=== PATIENT | male | born 1975 | race Caucasian/White ===

== ENCOUNTER → 2016-12-23 | Outpatient (CLI) | payer BC ==
--- NOTE | 2016-12-23 15:10 | DIAGNOSTIC IMAGING REPORT ---
TESTICULAR ULTRASOUND HISTORY: Pain N50.812 Pain in left testicle COMPARISON: None. FINDINGS: Right testis: Maximum dimension 5.1 cm. Normal vascular flow. Small hydrocele as well as patent inferior conceals Left testis: Maximum dimension 4.9 cm. Normal vascular flow. Partial thrombosis of a left-sided varicocele. Suggestion of possible exophytic nodule from the medial aspect of the left testis measuring 8 mm. This may also represent a thrombosed varicocele. IMPRESSION: 1. Normal testes. 2. Exophytic nodule projecting from the medial aspect of the left testis measuring 8 mm versus thrombosed varicocele. 3. Repeat study in several weeks is suggested as follow-up Electronically signed by: Rigo Flores M.D. 12/23/2016 3:08 PM Dictated Date/Time: 12/23/2016 3:05 PM
== END | disposition home or self-care (01) ==
LOC: C.ULTR 12:49 → C.ULTRBC 14:30
PROVIDERS: ATTEND Internal Medicine
DX: N50.812 Left testicular pain (principal); N50.9 Disorder of male genital organs, unspecified

== ENCOUNTER → 2017-01-12 | Outpatient (CLI) | payer BC ==
--- NOTE | 2017-01-12 10:04 | DIAGNOSTIC IMAGING REPORT ---
TESTICULAR ULTRASOUND HISTORY: MASS OF LEFT TESTICLE COMPARISON: Testicular ultrasound 12/23/2016. FINDINGS: Right testis: 5.2 x 2.6 x 3.4 cm. There are no intratesticular masses. Normal color flow. No hydrocele. The epididymis is unremarkable. Left testis: 4.6 x 23.8 x 2.5 cm. There are no intratesticular masses. Normal color flow. No hydrocele. A 3 mm cyst within the body of the epididymis. IMPRESSION: Normal bilateral testes. The left exophytic nodule is no longer identified. Electronically signed by: Thomas Franz M.D. 01/12/2017 10:02 AM Dictated Date/Time: 01/12/2017 9:34 AM
== END | disposition home or self-care (01) ==
LOC: C.ULTRBC 07:42
PROVIDERS: ATTEND Urology
DX: N50.9 Disorder of male genital organs, unspecified (principal)

== ENCOUNTER 2017-07-12 09:46 | Emergency (ER) | payer BC, OTHER ==
[~2017-07-12] VITALS: Ht 177.8 cm; Wt 150.0 kg
[2017-07-12 09:51] VITALS: TEMP 36.5; Ht 177.8 cm; Wt 150.0 kg
[2017-07-12] MEDS ORDERED: MONT1TAB3 PO (10:31)
[2017-07-12] MEDS ORDERED: PRLSR20 PO (10:31)
[2017-07-12] MEDS ORDERED: LEVO150T PO (10:31)
--- NOTE | 2017-07-12 11:09 | DIAGNOSTIC IMAGING REPORT ---
RIGHT LOWER EXTREMITY VENOUS DOPPLER CLINICAL HISTORY: Right medial knee edema. COMPARISON STUDY: No previous studies for comparison. TECHNIQUE: Sonography of the deep venous system of the right lower extremity was performed. Compression and augmentation were evaluated. FINDINGS: The right common femoral, superficial femoral and popliteal veins were compressible. Augmentation was normal. Flow was shown within the deep calf vessels. Note is made of thrombus within a superficial vein of the medial right knee that extends for approximately 2 cm. IMPRESSION: 1. No evidence of deep venous thrombus within the right lower extremity. 2. Small amount of thrombus within a superficial vein of the medial right knee consistent with superficial thrombophlebitis. Electronically signed by: Ed English M.D. 07/12/2017 11:08 AM Dictated Date/Time: 07/12/2017 11:06 AM
--- NOTE | 2017-07-12 11:28 | EMERGENCY ROOM VISIT NOTE ---
History First contact with patient: 09:55 Chief Complaint: LEG PAIN,LEG INJURY Stated Complaint: BLOOD CLOT? History of Present Illness The patient is a 41 year old male who presents to the Emergency Room via private vehicle referred by family doctor with complaints of "blood clot?". The patient states that for 5 days now he has had redness, and swelling and pain at the medial aspect of the right knee. He denies trauma or injury. He states that he was standing it is worse. He states that he called the family doctor who referred him here for potential blood clot. He has no history of clots. Review of Systems A complete 10-point Review of Systems was discussed with the patient, with pertinent positives and negatives listed in the History of Present Illness. All remaining Review of Systems questions can be considered negative unless otherwise specified. Past Medical/Surgical History Vasectomy Family History DM, Heart disease, HTN Social History Smoking Status: Current Every Day Smoker Current/Historical Medications Scheduled Levothyroxine Sodium (Synthroid), 150 MCG PO DAILY Montelukast Sodium (Singulair), 10 MG PO DAILY Omeprazole (Prilosec), 20 MG PO DAILY Physical Exam Vital Signs Date Time Temp Pulse Resp B/P (MAP) Pulse Ox O2 Delivery O2 Flow Rate FiO2 07/12/17 11:37 69 18 127/94 97 07/12/17 09:51 36.5 70 20 126/77 99 Room Air Physical Exam VITAL SIGNS - Vital signs and nursing notes were reviewed. Stable. GENERAL -41-year-old male appearing his stated age who is in no acute distress. Communicates well with provider and answers questions appropriately. SKIN - overlying the medial aspect of the patient's right knee there is erythema , and some increased warmth. The skin is intact. No evidence of trauma. There are varicose veins noted distally. EXTREMITIES - No clubbing or peripheral cyanosis. No pretibial edema present. Minimal tenderness overlying the patient's right medial knee. Medical Decision & Procedures ER Provider Diagnostic Interpretation: RIGHT LOWER EXTREMITY VENOUS DOPPLER CLINICAL HISTORY: Right medial knee edema. COMPARISON STUDY: No previous studies for comparison. TECHNIQUE: Sonography of the deep venous system of the right lower extremity was performed. Compression and augmentation were evaluated. FINDINGS: The right common femoral, superficial femoral and popliteal veins were compressible. Augmentation was normal. Flow was shown within the deep calf vessels. Note is made of thrombus within a superficial vein of the medial right knee that extends for approximately 2 cm. IMPRESSION: 1. No evidence of deep venous thrombus within the right lower extremity. 2. Small amount of thrombus within a superficial vein of the medial right knee consistent with superficial thrombophlebitis. Electronically signed by: Ed English M.D. 07/12/2017 11:08 AM Dictated Date/Time: 07/12/2017 11:06 AM Medical Decision Patient was seen and evaluated as above. He presents to us today with right leg localized swelling at the right medial knee. There is concern overlying DVT therefore ultrasound was obtained. This is negative for DVT however superficial thrombus phlebitis was noted. This is 2 cm in length. The medicine [place] E treatment task force guidelines were reviewed, and the patient does have a risk factor being male, however there is no known from affiliate, history of DVT, chronic venous insufficiency, recent surgery, trauma, injury, hospitalization, malignancy, hormone use. He also has varicose veins. This then led to a discussion of benefits versus risk of initiating anticoagulants. Through discussing this with the patient was decided to initiate aspirin, and have a potential repeat duplex scan at the 7 -10 day ezio. He verbalizes understanding. He notes an appointment with his family doctor is coming up in the near future. He is to follow with them. He has no chest pain or shortness of breath. He appears stable for outpatient management, and was educated upon conservative measures. He was educated upon management, educated upon worrisome symptoms which to return, had questions prior to discharge, and was discharged home in good condition. In the evaluation and treatment of this patient, the following differential diagnoses were considered: DVT, Patellar Fracture, Tibial Plateau Fracture, Distal Femur Fracture, ACL Injury, PCL Injury, Collateral Ligament Injury, Pes Anserine Bursitis, Maisonneuve Fracture. Impression Primary Impression: Leg pain, right Additional Impression: Acute superficial venous thrombosis of right lower extremity Departure Information Dispostion Home / Self-Care Condition GOOD Referrals Ravin Mariscal M.D. (PCP) Patient Instructions [facility] Additional Instructions You were seen in the emergency department for leg pain. Ultrasound shows that you have a superficial venous thrombosis which is a small clot in the veins close to the skin at the inside of your right knee. I do recommend beginning 81 mg of aspirin daily. I recommend warm compresses to the region. I do recommend follow-up with the family doctor in 7-10 days for repeat scan. Please return with any new/concerning symptoms. Thank you for your time Problem Qualifiers
[2017-07-12 11:37] VITALS: BP 127/94; PULSE 69; O2SAT 97
== END 2017-07-12 11:35 | disposition home or self-care (01) ==
LOC: C.EDB 09:49
DX: M79.604 Pain in right leg (principal); I82.811 Embolism and thrombosis of superficial veins of right lower extremity; Z79.899 Other long term (current) drug therapy; Z82.49 Family history of ischemic heart disease and other diseases of the circulatory system; Z83.3 Family history of diabetes mellitus; F17.200 Nicotine dependence, unspecified, uncomplicated

== ENCOUNTER → 2017-07-26 | Outpatient (CLI) | payer OTHER ==
[~2017-07-26] MED LIST: LEVO150T PO; MONT1TAB3 PO; PRLSR20 PO
[2017-07-26 17:46] LABS: BASO % 0.2 %; BASO ABS # 0.02 K/uL (0-0.2); EOS % 4.7 %; EOS ABS # 0.39 K/uL (0-0.5); HEMATOCRIT 48.2 % (42-52); HEMOGLOBIN 16.6 g/dL (14.0-18.0); IG# 0.06 K/uL (0.00-0.02); LYMPH % 23.4 %; LYMPH ABS # 1.93 K/uL (1.2-3.4); MEAN CELL VOLUME 89.4 fL (80-100); MEAN CORPUSCULAR HEMOGLOBIN 30.8 pg (25-34); MEAN CORPUSCULAR HGB CONC 34.4 g/dl (32-36); MEAN PLATELET VOLUME 10.7 fL (7.4-10.4); MONO % 9.5 %; MONO ABS # 0.78 K/uL (0.11-0.59); NEUT % 61.5 %; NEUT ABS # 5.06 K/uL (1.4-6.5); PLATELET COUNT 157 K/uL (130-400); RED CELL DISTRIBUTION WIDTH CV 13.7 % (11.5-14.5); RED CELL DISTRIBUTION WIDTH SD 44.6 fL (36.4-46.3); WHITE BLOOD COUNT 8.24 K/uL (4.8-10.8)
[2017-07-26 18:14] LABS: ALBUMIN 3.6 gm/dl (3.4-5.0); ALT/SGPT 76 U/L (12-78); AST/SGOT 32 U/L (15-37); BLOOD UREA NITROGEN 14 mg/dl (7-18); CARBON DIOXIDE 26 mmol/L (21-32); CHOLESTEROL 203 mg/dl (0-200); CREATININE 0.82 mg/dl (0.60-1.40); GLUCOSE 98 mg/dl (70-99); POTASSIUM 4.3 mmol/L (3.5-5.1); SODIUM 139 mmol/L (136-145)
[2017-07-26 18:19] LABS: ALKALINE PHOSPHATASE 80 U/L (45-117); LDL CHOLESTEROL CALCULATED 146 mg/dl
== END | disposition home or self-care (01) ==
LOC: C.LABBFT 11:21
PROVIDERS: ATTEND Physician Assistant Medical
DX: E03.9 Hypothyroidism, unspecified (principal)

== ENCOUNTER → 2017-07-26 | Outpatient (CLI) | payer OTHER ==
--- NOTE | 2017-07-26 13:52 | DIAGNOSTIC IMAGING REPORT ---
RIGHT LOWER EXTREMITY VENOUS DOPPLER HISTORY: RIGHT LEG PAIN AND SWELLING COMPARISON STUDY: Right leg venous Doppler 07/12/2017. FINDINGS: There is normal compressibility, flow, and augmentation within the right lower extremity deep venous system. There is superficial vein thrombosis identified within the right mid medial thigh and medial knee. This has slightly progressed. IMPRESSION: 1. No DVT within the right lower extremity 2. Slight progression of the superficial vein thrombosis within the right mid medial thigh and medial knee. Electronically signed by: Thomas Franz M.D. 07/26/2017 1:51 PM Dictated Date/Time: 07/26/2017 1:49 PM
== END | disposition home or self-care (01) ==
LOC: C.ULTRBC 12:57
PROVIDERS: ATTEND Physician Assistant Medical
DX: I82.811 Embolism and thrombosis of superficial veins of right lower extremity (principal)

== ENCOUNTER → 2017-07-29 | Outpatient (CLI) | payer OTHER ==
[2017-07-29 17:34] LABS: BLOOD UREA NITROGEN 12 mg/dl (7-18); CALCIUM 9.2 mg/dl (8.5-10.1); CARBON DIOXIDE 25 mmol/L (21-32); CREATININE 0.88 mg/dl (0.60-1.40); GLUCOSE 77 mg/dl (70-99); POTASSIUM 4.2 mmol/L (3.5-5.1); SODIUM 139 mmol/L (136-145)
== END | disposition home or self-care (01) ==
LOC: C.LABBFT 15:37
PROVIDERS: ATTEND Physician Assistant Medical
DX: E03.9 Hypothyroidism, unspecified (principal)

== ENCOUNTER → 2017-09-05 | Outpatient (CLI) | payer OTHER ==
--- NOTE | 2017-09-05 10:58 | DIAGNOSTIC IMAGING REPORT ---
R VENOUS DOPP LOWER EXT UNILAT CLINICAL HISTORY: I80.9 Superficial thrombophlebitisTO CONFIRM RESOLUTION. E X0D E deep venous fibrosis TECHNIQUE: Venous Doppler COMPARISON STUDY: 07/26/2017 FINDINGS: The study remains negative for deep venous tendinosis. There is a small peripheral branch of the mid saphenous vein within the distal thigh demonstrating superficial thrombophlebitis. This is improved from the prior study. IMPRESSION: Minimal residual superficial thrombophlebitis of a peripheral branch of the mid saphenous vein. This is improved from the prior study with only minimal residual. The study remains negative for deep venous thrombosis. The above report was generated using voice recognition software. It may contain grammatical, syntax or spelling errors. Electronically signed by: Rigo Flores M.D. 09/05/2017 10:57 AM Dictated Date/Time: 09/05/2017 10:55 AM
== END | disposition home or self-care (01) ==
LOC: C.ULTR 10:09
PROVIDERS: ATTEND Physician Assistant Medical
DX: I80.01 Phlebitis and thrombophlebitis of superficial vessels of right lower extremity (principal)

== ENCOUNTER → 2017-10-20 | Outpatient (CLI) | payer OTHER ==
[2017-10-20 16:30] LABS: HEMATOCRIT 44.8 % (42-52); HEMOGLOBIN 16.1 g/dL (14.0-18.0); MEAN CELL VOLUME 85.5 fL (80-100); MEAN CORPUSCULAR HEMOGLOBIN 30.7 pg (25-34); MEAN CORPUSCULAR HGB CONC 35.9 g/dl (32-36); MEAN PLATELET VOLUME 10.3 fL (7.4-10.4); PLATELET COUNT 175 K/uL (130-400); RED CELL DISTRIBUTION WIDTH SD 40.6 fL (36.4-46.3); WHITE BLOOD COUNT 8.57 K/uL (4.8-10.8)
[2017-10-20 16:39] LABS: PTT PATIENT 26.6 SECONDS (21.0-31.0)
[2017-10-20 17:04] LABS: BLOOD UREA NITROGEN 14 mg/dl (7-18); CALCIUM 8.8 mg/dl (8.5-10.1); CARBON DIOXIDE 27 mmol/L (21-32); CREATININE 0.93 mg/dl (0.60-1.40); GLUCOSE 122 mg/dl (70-99); POTASSIUM 4.2 mmol/L (3.5-5.1); SODIUM 140 mmol/L (136-145)
== END | disposition home or self-care (01) ==
LOC: C.LABBFT 15:32
PROVIDERS: ATTEND Internal Medicine Interventional Cardiology
DX: Z01.818 Encounter for other preprocedural examination (principal)

== ENCOUNTER → 2017-10-26 | Day surgery (SDC) | payer OTHER ==
[~2017-10-26] VITALS: Ht 177.8 cm; Wt 150.0 kg
[~2017-10-26] MED LIST changes: +CALC500C3 PO; +FENTANYL CITRATE INJ 50 MCG/1 ML 2 ML VIAL IV ONE; +FENTANYL CITRATE INJ 50 MCG/1 ML 2 ML VIAL ONE; +LIDOCAINE HCL 1% 20 ML VIAL INJ ONE; +LIDOCAINE HCL 1% 20 ML VIAL ONE; +LIDOCAINE/EPINEPHRINE 1% INJ 50 ML VIAL ONE; +MIDAZOLAM HCL 1 MG/ML 2ML VIAL IV ONE; +MIDAZOLAM HCL 1 MG/ML 2ML VIAL ONE; +ORM MISCELLANEOUS MED TOP ONE; +SODIUM BICARB 8.4% INJ 50 MEQ/50 ML SYR IV ONE; +SODIUM CHLORIDE 0.9% 1000ML IV SCH
[2017-10-26 06:40] VITALS: BP 125/84; PULSE 80; TEMP 36.6; O2SAT 97; Ht 177.8 cm; Wt 150.0 kg
--- NOTE | 2017-10-26 07:33 | History and Physical ---
History & Physical Date October 26, 2017. History of Present Illness Mr. Flores is a very pleasant 41-year-old man with a history, morbid obesity, hypothyroidism and chronic venous insufficiency with recent superficial thrombophlebitis. Patient was previously seen by Dr. Blue in July of 2015. At that time he endorsed longstanding varicose veins that were minimally symptomatic and conservative therapy was recommended. He tried compression stockings for more than 3 months with no significant improvement. Since that time he has developed worsening leg heaviness, tingling, swelling and overall pain in his legs. Also endorses mild lower extremity edema particularly at the end of the day. 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 In June of 2017 noted red, swollen area on the inner aspect of his right thigh. Had a venous ultrasound which showed thrombus in his right GSV. No evidence of DVT. After prolonged travel felt that symptoms were worse in right leg and had repeat ultrasound 2 weeks later in July where reported to have slight progression of thrombus but still limited to right GSV and was started on Eliquis for anticoagulation. Symptoms of thrombophlebitis have resolved and repeat ultrasound in August 2017 showed only minimal residual thrombus in right GSV. Prior to recent event no history of prior blood clots. Denies any prior lower extremity ulcerations. 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 Additional History Hepatic Disease: No Endocrine Disorder: Yes Kidney Disease: No Hypertension: Yes Heart Disease: No Bleeding Tendencies: No Infectious Diseases: No Allergies Coded Allergies: No Known Allergies (Unverified , 10/26/17) Home Medications Scheduled Levothyroxine Sodium (Synthroid), 150 MCG PO DAILY Montelukast Sodium (Singulair), 10 MG PO DAILY Omeprazole (Prilosec), 20 MG PO DAILY Miscellaneous Medications Calcium Carbonate (Tums), 2 TABS PO Physical Examination Skin: warm/dry Eyes: normal inspection Respiratory/Chest: lungs clear Cardiovascular: regular rate, rhythm, no edema Abdomen / GI: normal bowel sounds Extremities: + pertinent finding (Bilateral LE edema, varicose veins) Neurologic/Psych: alert, oriented x 3 Diagnosis Chronic venous insufficiency ASA Classification: ASA Class II Plan of Treatment Proceed with bilateral GSV RFA
--- NOTE | 2017-10-26 07:34 | Pre Sedation Assessment ---
Pre Sedation Assessment General Date of Sedation: October 26, 2017. Vital Signs Past 12 Hours Date Time Temp Pulse Resp B/P (MAP) Pulse Ox O2 Delivery O2 Flow Rate FiO2 10/26/17 06:40 36.6 80 20 125/84 (98) 97 Room Air Review Cardiovascular: regular rate, rhythm, no edema Lungs: chest non-tender, lungs clear Pre-Sedation Airway Assessment Smoking Status: Current Every Day Smoker Hx of Sleep Apnea: Yes Hx of difficult intubation: No Short Thick Neck: Yes Oral Cavity: Capped Teeth Mallampati Classification: Class II ASA Classification: Class II NPO Status Date of Last Intake of Fluids: October 25, 2017 Time of Last Intake of Fluids: 2355 Date of Last Intake of Solids: October 26, 2017 Time of Last Intake of Solids: 0005 Procedure Planning Contraindications for Sedation: None Current Medications Reviewed: Yes Notes The planned sedation has been discussed with the patient. Informed Consent was obtained. I have identified the patient, determined the appropriateness of sedation and have assessed the patient immediately prior to the procedure. All medicine(s) and interventions are by my order.
--- NOTE | 2017-10-26 09:17 | Post Sedation Assessment ---
Post Sedation Assessment General Date of Sedation October 26, 2017. Vital Signs: Vital Signs Past 12 Hours Date Time Temp Pulse Resp B/P (MAP) Pulse Ox O2 Delivery O2 Flow Rate FiO2 10/26/17 06:40 36.6 80 20 125/84 (98) 97 Room Air Post Procedure Recovery Score Activity: (2) Moves 4 extremities * Respiration: (2) Deep breath/cough Circulation: (2) +/-20% PreAnes Value Consciousness: (2) Fully Awake Oxygen Saturation: (2) > 92% On Room Air Discharge Sedation Level of Care: Fast Track Phase II Post Sedation Plan On clinical assessment, the patient appears to have tolerated the sedation without complications. Patient is recovering as anticipated. Patient will continue to be monitored by nursing and may be discharged when sedation discharge criteria are met per below protocol. Upon Completions of procedure and additional 15 minutes continue every 5 minute vital signs and the P.A.R. score; then discharge to a Phase I or Fast Track to Phase II per the following guidelines: * Discharge Patient to appropriate Phase II area if PAR is 8 or greater or return to pre- procedure baseline. The post - procedure orders will be as directed. * If PAR score is less than 8 or not return to pre-procedure baseline then patient will follow Phase I monitoring till PAR is reached for Phase II. The Phase I may be done in procedure room or may call to secure a Phase I area. * If naloxone or flumazenil are used for reversal, hold in Phase I for an additional 60 -120 minutes before discharge to Phase II. Please call the Sedation Physician to re-evaluate and complete post-note for discharge to Phase II area. Do NOT discharge from procedure sedation or Phase 1 until post- sedation evaluation note is complete by procedure /sedation MD Sedation Discharge Instructions to be given to the patient at discharge to home.
--- NOTE | 2017-10-26 09:20 | [facility] Operative Report ---
Operative Report Operative Date October 26, 2017. Pre-Operative Diagnosis Venous Insufficiency Post-Operative Diagnosis Venous Insufficiency Procedure(s) Performed Bilateral Greater Saphenous Vein Radiofrequency Ablation Moderate Sedation [id number] Surgeon Sinan Machine Operator General Surgeon(s) None Estimated Blood Loss 7 Findings dilated bilateral GSVs with varices Specimens None Drains None Anesthesia Type IV Sedat Cons RN Only Complication(s) none Disposition Recovery Room / PACU Description of Procedure BILATERAL GSV RFA US guided access Right GSV below the knee. Catheter inserted, 2.5 cm from SFJ. Tumescent injected. US confirmed not in deep system. 3:20, 10 cycles of RFA right GSV. No complications. Patient tolerated well. US confirmed no DVT post procedure. US guided access Left GSV below the knee. Catheter inserted, 2.2 cm from SFJ. Tumescent injected. US confirmed not in deep system. 3:00, 9 cycles of RFA left GSV. No complications. Patient tolerated well. US confirmed no DVT post procedure. Summary: 1. Successful RFA of Bilateral GSVs I attest to the content of the Intraoperative Record and any orders documented therein. Any exceptions are noted below.
--- NOTE | 2017-10-26 09:21 | Discharge Instructions ---
Discharge Instructions Procedure Procedure Date: October 26, 2017. Reason for Visit: Venous Insufficiency. Discharge Discharge Date: October 26, 2017. Discharge Diagnosis: venous insufficiency Last Recorded Wt (Kilograms): 150 Anesthesia Post Anesthesia Instructions: If you have had General Anesthesia or IV Sedation: * Do not drive today. * Resume driving when surgeon permits. * Do not make important decisions or sign legal documents today. * Call surgeon for: 1. Temperature elevations greater than 101 degrees F. 2. Uncontrollable pain. 3. Excessive bleeding. 4. Persistent nausea and vomiting. 5. Medication intolerance (nausea, vomiting or rash). * For nausea and vomiting use only clear liquids such as: tea, soda, bouillon until nausea subsides, then gradually increase diet as tolerated. * If you have any concerns or questions, call your surgeon's office. If physician is unavailable and it is an emergency, call 911 or go to the nearest emergency room. Instructions Activity Recommendations: limitations as noted below Recommended Home Diet: resume previous diet Allergies: Coded Allergies: No Known Allergies (Unverified , 10/26/17) Follow Up Additional Instructions: Follow instructions as outlined in paperwork from Dr. Menon' office. Up walking today. Follow up Ultrasound as scheduled. ABDOUL wrap until scheduled ultrasound Post ultrasound wear compression stockings indefinitely. Any severe pain, present to the emergency room for evaluation for DVT. Follow-up with: As scheduled Codey Kiran Recommendations: Call your doctor if: * Temperature above 101 degrees * Pain not relieved by pain medicine ordered * There is increased drainage or redness from any incision * You have any unanswered questions or concerns. Your Doctors Instructions noted above were prepared by provider Shabbir Menon. Patient Signature Section: Patient Instructions Signature Page [facility] Patient (or Guardian) Signature/Date: I have read and understand the instructions given to me by my caregivers. Caregiver/RN/Doctor Signature/Date: The above-named patient and/or guardian has received patient instructions on this date. + Original Patient Signature Page (only) stays with chart. Please make copy for patient.
[2017-10-26 09:35] VITALS: BP 101/59; PULSE 74; TEMP 37.2; O2SAT 96
--- NOTE | 2017-10-26 09:42 | DIAGNOSTIC IMAGING REPORT ---
L GUIDANCE FOR VENOUS ABLATION CLINICAL HISTORY: 41 years-old Male presenting with left greater saphenous venous ablation. TECHNIQUE: Real-time grayscale Doppler ultrasound imaging of the left greater saphenous vein was performed for a focused evaluation at the site of clinical concern. Color Doppler ultrasound imaging was also performed. COMPARISON: None. FINDINGS/IMPRESSION: The left greater saphenous vein was ablated in the operating room. Color Doppler was used to confirm venous ablation. Please see separately dictated operative report. Electronically signed by: Heri Farmer M.D. 10/26/2017 9:41 AM Dictated Date/Time: 10/26/2017 9:40 AM
--- NOTE | 2017-10-26 09:43 | DIAGNOSTIC IMAGING REPORT ---
INTRAOPERATIVE ULTRASOUND CLINICAL HISTORY: Right greater saphenous venous ablation. FINDINGS: 3 intraoperative sonographic images from a right lower extremity venous ablation procedure are presented. Only the perlite grinder was present during the procedure. There are changes consistent with right greater saphenous venous ablation. The ablation site is approximately 2.5 cm from the junction with the common femoral vein. A color-flow image of the common femoral vein shows the vessel is patent. IMPRESSION: Intraoperative images from a right lower extremity venous ablation procedure as above. Electronically signed by: Rocky Quinn M.D. 10/26/2017 9:42 AM Dictated Date/Time: 10/26/2017 9:40 AM
[2017-10-26 10:05] VITALS: BP 127/73; PULSE 69; TEMP 36.7; O2SAT 96
[2017-10-26 10:35] VITALS: BP 117/62; PULSE 74; TEMP 37; O2SAT 96
== END ==
LOC: C.ACU 06:15
PROVIDERS: ATTEND Internal Medicine Interventional Cardiology
DX: I87.2 Venous insufficiency (chronic) (peripheral) (principal); E66.01 Morbid (severe) obesity due to excess calories; E03.9 Hypothyroidism, unspecified; Z86.72 Personal history of thrombophlebitis